=== PATIENT | male | born 1950 ===

== ENCOUNTER 2018-11-13 17:21 | Emergency (ER) | payer MEDICARE, SELFPAY ==
[2018-11-13] VITALS (11 sets, daily range): BP systolic 127–146; BP diastolic 77–87; PULSE 70–89; RESP 13–25; TEMP 36.6–37.9; O2SAT 91–99
--- NOTE | 2018-11-13 17:51 | DI.RAD_ITS ---
SYMPTOM/DIAGNOSIS: SHOULDER PAIN LEFT SHOULDER: There is an anterior dislocation of the humeral head with respect to the glenoid. A declivity is seen in the humeral head consistent with a Hill Sachs lesion. No glenoid fracture is visible. The A-C joint is not widened. 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
--- NOTE | 2018-11-13 19:26 | DI.VRAD_ITS ---
EXAM: XR Left Shoulder Complete, 2 or More Views EXAM DATE/TIME: 11/13/2018 5:52 PM CLINICAL HISTORY: 67 years old, male; Pain; Shoulder; Left; Additional info: Shoulder pain from fall today; Dislocation vs. Fracture TECHNIQUE: XR Left shoulder complete 2 or more views. COMPARISON: No relevant prior studies available. FINDINGS: Bones/joints: Anterior dislocation of the glenohumeral joint. Hill-Sachs fracture. Soft tissues: No radiopaque. IMPRESSION: Anterior dislocation of the glenohumeral joint. Hill-Sachs fracture. Dictated and Authenticated by: Ernesto Linton MD. Ordering:JOSEPH Knight MD
--- NOTE | 2018-11-13 22:10 | W.ED.GENAD ---
Discharge Plan Disposition Patient Disposition: HOME Condition: Improving Discharge Details Chief Complaint: Orthopedic Clinical Impression: Anterior dislocation of left shoulder, Hill Sachs deformity, left Reason For Visit: left shoulder ? dislocation Primary Care Provider: None,None ED Provider: Eugene Camacho Home Meds and New Rx's Prescriptions: No Action Centrum Men 8 mg iron- 200 mcg-600 mcg Tablet 1 tab PO DAILY RF: 0 Discharge Instructions Instructions: Shoulder Dislocation (ED) Additional Instructions: You may apply ice and continue to use [id number] Tylenol or Motrin as needed for discomfort. Follow-up with orthopedist as directed by their office for reassessment Referrals: Juarez Nolan MD [ [facility] STAFF PHYSICIAN] - Damion Davenport MD [ [facility] STAFF PHYSICIAN] - Discharge Data Discharge Date/Time-TO BE ENTERED AT DEPARTURE: 11/14/18 00:35 Medical Decision Making <Eugene Camacho NP - Last Filed: 11/22/18 20:09> Patient presenting the emergency department for chief complaint of slip and fall with left shoulder injury. He states that he slid on some ice/snow and in an attempt to not hit his head he spun around and landed on his left shoulder. He states that he felt that he may have dislocated his left shoulder during the fall. He does state history of dislocation of the right shoulder but never of the left shoulder. Patient denies any other injury or trauma. He does state he has been fighting a small viral illness but denies any cough, difficulty breathing, nasal congestion or other symptoms just some chills. Physical exam shows significant squared off left shoulder with deformity and concern for anterior dislocation. Patient is neurovascularly intact distal to dislocation. Patient radiological imaging was ordered to rule out acute fracture. Review of radiological imaging shows anterior dislocation with possible Hill-Sachs fracture. Patient initially gave verbal consent to Hinojosa and Milch technique for shoulder reduction. Both of these were attempted with no reduction. Given patient having significant amount of pain, intra-articular joint injection of 1% lidocaine was performed. This was done using sterile technique and Betadine cleanse of the skin prior to injection. Serosanguineous fluid was aspirated prior to injection and injection went smoothly. Patient did state significant reduction of discomfort with this technique. Afterwards we attempted to perform reduction both with external rotation and Milch technique which were both unsuccessful due to continued pain and discomfort. Patient was then consented for procedural sedation and closed reduction. Dr. Rudolph assisted with procedural sedation. External rotation and manipulation was utilized and there was a palpable and visual relocation of the shoulder. Patient was sent over for radiological imaging postreduction. Postreduction films as interpreted by myself show appropriate joint reduction. Pending radiologist interpretation patient was requesting to go home. Patient stated significant reduction of pain and discomfort and joint looked no longer deformed. I feel that this is reasonable. Patient placed up on orthopedic follow-up list and placed in a sling. Patient encouraged to use [id number] pain medication as needed. After discussion of diagnosis and plan of care patient has no further needs, questions, or concerns and states clear understanding to return to the emergency department for any worsening symptoms. <Ridge Rudolph MD - Last Filed: 11/13/18 23:16> ECG Data Attestation: I personally reviewed and interpreted this ECG (s) as follows: Interpretation: Normal sinus rhythm at 70. Normal axis and intervals. Normal EKG. HPI <Eugene Camacho NP - Last Filed: 11/22/18 20:09> General Mode of arrival: ambulatory. Date/Time Provider Initiated Documentation: 11/13/18 17:45. Limitations to Documentation: no limitations. Information obtained by: patient and RN notes reviewed. History of Present Illness 67 year old M presents to the emergency department with the chief complaint of left shoulder injury, described as mild, with intensity rated at 4. Quality is described as aching, and is localized to the left and upper extremity. Patient started experiencing this hour(s) (2) and it has been constant. No relieving factors improve symptom(s), No exacerbating factors reported . Patient notes no other symptoms.. Patient did receive the following treatments prior to arrival, none Related Data Home Medications Medication Instructions Recorded Confirmed mv,Ca,vbv-dgpm-NS-lycopene 1 tab PO DAILY 11/13/18 11/13/18 [Centrum Men] Allergies Allergy/AdvReac Type Severity Reaction Status Date / Time No Known Allergies Allergy Unverified 11/13/18 18:22 General Stated Complaint: Orthopedic LUIS: 3 Review of Systems <Eugene Camacho NP - Last Filed: 11/22/18 20:09> Cardiovascular Denies syncope Musculoskeletal Reports as per HPI, Reports deformity, Denies numbness and Denies tingling Integumentary/Breasts Denies rash, Denies sores and Denies wounds Neurologic Denies syncope, Denies numbness and Denies tingling PFSH <Eugene Camacho NP - Last Filed: 11/22/18 20:09> Social History Smoking/Tobacco Use Status: Never Exam <Eugene Camacho NP - Last Filed: 11/22/18 20:09> Const General: cooperative and no acute distress Orientation: alert, awake and oriented x3 Resp Effort & Inspection: normal respiratory effort and able to speak in complete sentences Cardio Rate: regular rate Rhythm: regular rhythm Extrem Left upper extremity: shoulder/upper arm Details: tenderness Location: of the proximal humerus and over the biceps tendon, axillary nerve sensory function normal, abnormal ROM Details: held in an abnormal fashion Details: in ADduction and in internal rotation and deformity Location: of the shoulder joint Location: anteriorly Course <Eugene Camacho NP - Last Filed: 11/22/18 20:09> Vital Signs Temperature 37.9 C H 11/13/18 18:17 Pulse 89 11/13/18 18:17 Respiratory Rate 16 11/13/18 18:17 Blood Pressure 141/87 H 11/13/18 18:17 Pulse Oximetry 96 11/13/18 18:17 Temperature 37.9 C H 11/13/18 18:17 Pulse 89 11/13/18 18:17 Respiratory Rate 16 11/13/18 18:17 Respiratory Effort Non-Labored 11/13/18 18:17 Blood Pressure 141/87 H 11/13/18 18:17 Blood Pressure Position Sitting 11/13/18 18:17 Pulse Oximetry 96 11/13/18 18:17 Oxygen Delivery Method Room Air 11/13/18 18:17 Oxygen Flow Rate 0 11/13/18 18:17 Pain Level 8 11/13/18 21:03 Procedures <Eugene Camacho NP - Last Filed: 11/22/18 20:09> Orthopedic Joint Reduction Left shoulder: Time Out Performed: Yes Side: left Joint Reduction Location: shoulder Analgesia: procedural sedation and other (Intra-articular injection) Local Anesthesia: Lidocaine 1% Amount of anesthesic used (mL): 10 Shoulder Technique Used (if applicable): external rotation, Milch and Hinojosa Post-reduction neuro exam: intact Post-reduction vascular: intact Post Reduction X-Ray Obtained: Yes Post Reduction X-Ray Results: reduced Splint Applied: Yes (sling) Patient Tolerated Procedure: well and no complications <Ridge Rudolph MD - Last Filed: 11/13/18 23:16> Procedural Sedation Indication: fracture/dislocation reduction Presedation Evaluation: Healthy male with no significant PMH with mild viral illness at this time. He has a left shoulder dislocation. EKG is normal. Vitals are normal. Mallampati score of 1. Informed consent for procedural sedation obtained. ASA Class: II Time of Last PO Intake: 07:00 Preparation: court monitor applied, pulse oximeter, capnometry used, supplemental O2 applied, suction/airway equipment at bedside and IV secured IV Propofol dose (mg): 120 Patient Tolerated Procedure: well Complications: hypoventilation Additional Comments: Patient given a total of 120 mg of propofol IVP by me over the course of about 5 minutes. Shoulder was reduced by CYBER ENGINEER. Patient had couple minutes of hypoventilation/mild hypoxia after procedure but responded to verbal stimuli to breath and increase in NC oxygen from 2 to 6 L/m. He did not require any other interventions and was awake and breathing on own without problems.
--- NOTE | 2018-11-13 22:13 | ED.GENADUL_ITS ---
Discharge Plan Disposition Patient Disposition: HOME Condition: Improving Discharge Details Chief Complaint: Orthopedic Clinical Impression: Anterior dislocation of left shoulder, Hill Sachs deformity, left Reason For Visit: left shoulder ? dislocation Primary Care Provider: None,None ED Provider: Eugene Camacho Home Meds and New Rx's Prescriptions: No Action Centrum Men 8 mg iron- 200 mcg-600 mcg Tablet 1 tab PO DAILY RF: 0 Discharge Instructions Instructions: Shoulder Dislocation (ED) Additional Instructions: You may apply ice and continue to use [id number] Tylenol or Motrin as needed for discomfort. Follow-up with orthopedist as directed by their office for reassessment Referrals: Juarez Nolan MD [ [facility] STAFF PHYSICIAN] - Damion Davenport MD [ [facility] STAFF PHYSICIAN] - Discharge Data Discharge Date/Time-TO BE ENTERED AT DEPARTURE: 11/14/18 00:35 Medical Decision Making <Eugene Camacho NP - Last Filed: 11/22/18 20:09> Patient presenting the emergency department for chief complaint of slip and fall with left shoulder injury. He states that he slid on some ice/snow and in an attempt to not hit his head he spun around and landed on his left shoulder. He states that he felt that he may have dislocated his left shoulder during the fall. He does state history of dislocation of the right shoulder but never of the left shoulder. Patient denies any other injury or trauma. He does state he has been fighting a small viral illness but denies any cough, difficulty breathing, nasal congestion or other symptoms just some chills. Physical exam shows significant squared off left shoulder with deformity and concern for anterior dislocation. Patient is neurovascularly intact distal to dislocation. Patient radiological imaging was ordered to rule out acute fracture. Review of radiological imaging shows anterior dislocation with possible Hill- Sachs fracture. Patient initially gave verbal consent to Hinojosa and Milch technique for shoulder reduction. Both of these were attempted with no reduction. Given patient having significant amount of pain, intra-articular joint injection of 1% lidocaine was performed. This was done using sterile technique and Betadine cleanse of the skin prior to injection. Serosanguineous fluid was aspirated prior to injection and injection went smoothly. Patient did state significant reduction of discomfort with this technique. Afterwards we attempted to perform reduction both with external rotation and Milch technique which were both unsuccessful due to continued pain and discomfort. Patient was then consented for procedural sedation and closed reduction. Dr. Rudolph assisted with procedural sedation. External rotation and manipulation was utilized and there was a palpable and visual relocation of the shoulder. Patient was sent over for radiological imaging postreduction. Postreduction films as interpreted by myself show appropriate joint reduction. Pending radiologist interpretation patient was requesting to go home. Patient stated significant reduction of pain and discomfort and joint looked no longer deformed. I feel that this is reasonable. Patient placed up on orthopedic follow-up list and placed in a sling. Patient encouraged to use raem-qfq-zdo nter pain medication as needed. After discussion of diagnosis and plan of care patient has no further needs, questions, or concerns and states clear understanding to return to the emergency department for any worsening symptoms. <Ridge Rudolph MD - Last Filed: 11/13/18 23:16> ECG Data Attestation: I personally reviewed and interpreted this ECG (s) as follows: Interpretation: Normal sinus rhythm at 70. Normal axis and intervals. Normal EKG. HPI <Eugene Camacho NP - Last Filed: 11/22/18 20:09> General Mode of arrival: ambulatory . Date/Time Provider Initiated Documentation: 11/13/18 17:45 . Limitations to Documentation: no limitations . Information obtained by: patient and RN notes reviewed . History of Present Illness 67 year old M presents to the emergency department with the chief complaint of left shoulder injury, described as mild, with intensity rated at 4. Quality is described as aching, and is localized to the left and upper extremity. Patient started experiencing this hour(s) (2) and it has been c onstant. No relieving factors improve symptom(s), No exacerbating factors reported . Patient notes no other symptoms.. Patient did receive the following treatments prior to arrival, none Related Data Home Medications Medication Instructions Recorded Confirmed mv,Ca,ylb-edti-SL-lycopene 1 tab PO DAILY 11/13/18 11/13/18 [Centrum Men] Allergies Allergy/AdvReac Type Severity Reaction Status Date / Time No Known Allergies Allergy Unverified 11/13/18 18:22 General Stated Complaint: Orthopedic LUIS: 3 Review of Systems <Eugene Camacho NP - Last Filed: 11/22/18 20:09> Cardiovascular Denies syncope Musculoskeletal Reports as per HPI, Reports deformity, Denies numbness and Denies tingling Integumentary/Breasts Denies rash, Denies sores and Denies wounds Neurologic Denies syncope, Denies numbness and Denies tingling PFSH <Eugene Camacho NP - Last Filed: 11/22/18 20:09> Social History Smoking/Tobacco Use Status: Never Exam <Eugene Camacho NP - Last Filed: 11/22/18 20:09> Const General: cooperative and no acute distress Orientation: alert, awake and oriented x3 Resp Effort & Inspection: normal respiratory effort and able to speak in complete sentences Cardio Rate: regular rate Rhythm: regular rhythm Extrem Left upper extremity: shoulder/upper arm Details: tenderness Location: of the proximal humerus and over the biceps tendon, axillary nerve sensory function normal, abnormal ROM Details: held in an abnormal fashion Details: in ADduction and in internal rotation and deformity Location: of the shoulder joint Location: anteriorly Course <Eugene Camacho NP - Last Filed: 11/22/18 20:09> Vital Signs Temperature 37.9 C H 11/13/18 18:17 Pulse 89 11/13/18 18:17 Respiratory Rate 16 11/13/18 18:17 Blood Pressure 141/87 H 11/13/18 18:17 Pulse Oximetry 96 11/13/18 18:17 Temperature 37.9 C H 11/13/18 18:17 Pulse 89 11/13/18 18:17 Respiratory Rate 16 11/13/18 18:17 Respiratory Effort Non-Labored 11/13/18 18:17 Blood Pressure 141/87 H 11/13/18 18:17 Blood Pressure Position Sitting 11/13/18 18:17 Pulse Oximetry 96 11/13/18 18:17 Oxygen Delivery Method Room Air 11/13/18 18:17 Oxygen Flow Rate 0 11/13/18 18:17 Pain Level 8 11/13/18 21:03 Procedures <Eugene Camacho NP - Last Filed: 11/22/18 20:09> Orthopedic Joint Reduction Left shoulder: Time Out Performed: Yes Side: left Joint Reduction Location: shoulder Analgesia: procedural sedation and other (Intra-articular injection) Local Anesthesia: Lidocaine 1% Amount of anesthesic used (mL): 10 Shoulder Technique Used (if applicable): external rotation, Milch and Hinojosa Post-reduction neuro exam: intact Post-reduction vascular: intact Post Reduction X-Ray Obtained: Yes Post Reduction X-Ray Results: reduced Splint Applied: Yes (sling) Patient Tolerated Procedure: well and no complications <Ridge Rudolph MD - Last Filed: 11/13/18 23:16> Procedural Sedation Indication: fracture/dislocation reduction Presedation Evaluation: Healthy male with no significant PMH with mild viral illness at this time. He has a left shoulder dislocation. EKG is normal. Vit als are normal. Mallampati score of 1. Informed consent for procedural sedation obtained. ASA Class: II Time of Last PO Intake: 07:00 Preparation: bus monitor applied, pulse oximeter, capnometry used, supplemental O2 applied, suction/airway equipment at bedside and IV secured IV Propofol dose (mg): 120 Patient Tolerated Procedure: well Complications: hypoventilation Additional Comments: Patient given a total of 120 mg of propofol IVP by me over the course of about 5 minutes. Shoulder was reduced by INDUSTRIAL RELATIONS WORKER. Patient had couple minutes of hypoventilation/mild hypoxia after procedure but responded to verbal stimuli to breath and increase in NC oxygen from 2 to 6 L/m. He did not require any other interventions and was awake and breathing on own without problems.
[2018-11-13] MEDS: Normal Saline 1,000 ML 1000 ML IV (22:35)
--- NOTE | 2018-11-13 22:38 | NUR.NOTE ---
Nursing Note: propofol IVP initiated by MD mesa at 2238. Ga Camacho at bedside, this nurse as well. Consents were obtained, friend in room per pt request. Time out done prior to procedure. Pt's initial EtCo2 measurements 25. aware.
[2018-11-13] MEDS: Propofol 200 MG/20 ML VIAL (22:44)
--- NOTE | 2018-11-13 22:48 | DI.RAD_ITS ---
SYMPTOM/DIAGNOSIS: POST REDUCTION. LEFT SHOULDER : 11/13/18 AT 11:32 P.M. Comparison is made with the exam performed at 6:36 p.m. The humeral head is now normally related to the glenoid. No fractures are identified. IMPRESSION: Successful reduction of previously noted dislocation.
--- NOTE | 2018-11-13 22:52 | NUR.NOTE ---
Nursing Note: Procedure ended at 1047.
--- NOTE | 2018-11-14 00:36 | DI.VRAD_ITS ---
EXAM: XR Left Shoulder Complete, 2 or More Views EXAM DATE/TIME: 11/13/2018 11:41 PM CLINICAL HISTORY: 67 years old, male; Condition or disease; Other: Post reduction of dislocation TECHNIQUE: XR Left shoulder complete 2 or more views. COMPARISON: CR XR shoulder LT complete 2+V 11/13/2018 6:29 PM FINDINGS: Bones/joints: Successful relocation of the left humerus. Soft tissues: Normal. IMPRESSION: Successful relocation of the left humerus. Dictated and Authenticated by: Meli Dahl MD. Ordering:JOSEPH Knight MD
[2018-11-14 00:43] VITALS: BP 129/78; PULSE 80; RESP 22; TEMP 36.7; O2SAT 95
== END 2018-11-14 00:35 | disposition home or self-care (01) ==
PROVIDERS: Emergency Provider Nurse Practitioner Family
DX: S43.015A Anterior dislocation of left humerus, initial encounter (principal); S42.202A Unspecified fracture of upper end of left humerus, initial encounter for closed fracture; W00.0XXA Fall on same level due to ice and snow, initial encounter
CPT/HCPCS: 23540; 73030; 93005; 96360; 96361; 93010; L3650

== ENCOUNTER → 2018-11-30 09:58 | Outpatient (BNVA) | payer MEDICARE, SELFPAY | PROVIDERS: Visit Provider Orthopaedic Surgery | DX: S43.015A Anterior dislocation of left humerus, initial encounter (principal); W00.0XXA Fall on same level due to ice and snow, initial encounter | CPT/HCPCS: 99201; 99214 ==

== ENCOUNTER → 2018-12-30 09:55 | Outpatient (BNVA) | payer MEDICARE, SELFPAY | PROVIDERS: Visit Provider Orthopaedic Surgery | DX: S43.005D Unspecified dislocation of left shoulder joint, subsequent encounter (principal); W00.0XXD Fall on same level due to ice and snow, subsequent encounter | CPT/HCPCS: 99213 ==